=== PATIENT | male | born 1990 | race Caucasian/White ===

== ENCOUNTER 2018-10-30 14:45 | Emergency (ER) | payer SELFPAY ==
[~2018-10-30] VITALS: Ht 170.2 cm; Wt 76.2 kg
--- NOTE | 2018-10-30 16:46 | NUR ---
PT WAS EVALUATED BY DR ZARATE. PT WAS D/C'd TO HOME. D/C INSTRUCTIONS GIVEN TO THE PT.
[2018-10-30 16:49] VITALS: BP 136/68
== END 2018-10-30 16:50 | disposition home or self-care (01) ==
LOC: ER 14:45
DX: S61.012A Laceration without foreign body of left thumb without damage to nail, initial encounter (principal); W26.8XXA Contact with other sharp object(s), not elsewhere classified, initial encounter; Y93.89 Activity, other specified; Y92.89 Other specified places as the place of occurrence of the external cause; Y99.8 Other external cause status
CPT/HCPCS: 12004; 99283; J3490; A4217; A4663

== ENCOUNTER 2018-11-05 19:15 | Emergency (ER) | payer SELFPAY ==
[~2018-11-05] VITALS: Ht 170.2 cm; Wt 76.2 kg
--- NOTE | 2018-11-05 21:10 | NUR ---
PATIENT HAS CLEAN AND INTACT SUTURE ON LEFT HAND WITH NO REDNESS AND SWELLING NOTED
--- NOTE | 2018-11-05 21:30 | NUR ---
Patient discharged to home in stable conditon. Written and verbal after care instructions given. Patient verbalizes understanding of instructions. WALKED OUT OF ER WITH NO DISTRESS NOTED
[2018-11-05 21:38] VITALS: BP 125/77
== END 2018-11-05 21:39 | disposition home or self-care (01) ==
LOC: ER 19:18
DX: S61.411D Laceration without foreign body of right hand, subsequent encounter (principal); X58.XXXD Exposure to other specified factors, subsequent encounter
CPT/HCPCS: A4663

== ENCOUNTER 2018-11-13 15:05 | Emergency (ER) | payer SELFPAY ==
[~2018-11-13] VITALS: Ht 170.2 cm; Wt 76.2 kg
[2018-11-13 16:05] VITALS: BP 118/63
--- NOTE | 2018-11-13 16:06 | NUR ---
Patient discharged to home in stable conditon. Written and verbal after care instructions given. Patient verbalizes understanding of instructions.
== END 2018-11-13 16:09 | disposition home or self-care (01) ==
LOC: ER 15:06
DX: S61.012D Laceration without foreign body of left thumb without damage to nail, subsequent encounter (principal); W26.8XXD Contact with other sharp object(s), not elsewhere classified, subsequent encounter
CPT/HCPCS: A4663